=== PATIENT | female | born 1985 | race Caucasian/White ===

== ENCOUNTER → 2020-12-03 19:45 | Outpatient (CLI) | payer MEDICAID, SELFPAY | PROVIDERS: Visit Provider Nurse Practitioner Family | DX: Z20.822 Contact with and (suspected) exposure to COVID-19 (principal) | CPT/HCPCS: U0003 ==

== ENCOUNTER → 2021-05-16 10:54 | Outpatient (CLI) | payer MEDICAID, SELFPAY | PROVIDERS: Visit Provider Nurse Practitioner | DX: Z20.822 Contact with and (suspected) exposure to COVID-19 (principal) | CPT/HCPCS: C9803; U0003; U0005 ==

== ENCOUNTER 2021-06-07 16:17 | Emergency (ER) | payer MEDICAID, SELFPAY ==
[2021-06-07 17:00] VITALS: BP 128/81; PULSE 89; RESP 16; TEMP 37.1; O2SAT 99; BMI 24.9
--- NOTE | 2021-06-07 17:17 | HMH.EDUTC ---
[facility] [place] Disposition Clinical Impression: Viral syndrome, Exposure to COVID-19 virus Pharyngitis Qualifiers: Pharyngitis/tonsillitis etiology: unspecified etiology Qualified Code(s): J02.9 - Acute pharyngitis, unspecified Disposition: Home, Self-Care Condition on Discharge: Good Instructions: Preventing the Spread of Coronavirus Discharge Instructions, DI for COVID-19 (Suspected or Confirmed ), DI for Viral Syndrome Additional Instructions: Drink plenty of fluids. Take tylenol or ibuprofen for pain or fever. Take the medications as directed. Follow up with your regular doctor. GO TO THE ER FOR ANY WORSENING SYMPTOMS Quarantine until you know the results of your covid-19 test. Notify your school or workplace of your results and follow their instructions regarding return to work/school. Prescriptions: Brompheniramine/Pseudoephed/Dm [Bromfed Dm Cough Syrup] 5 ml PO Q6HP PRN #240 ml PRN Reason: Cough Transmission Status: Pending to [facility] Ondansetron [Zofran 4mg ODT] 4 mg PO Q8HP PRN #12 tab PRN Reason: Nausea Transmission Status: Pending to [facility] Azithromycin [Z-Ramone 250mg Tab*] 250 mg PO UD DOSE PK #6 tab Transmission Status: Pending to [facility] Referrals: Provider,Referral, MD [Primary Care Provider] - Forms: Work/School Release Time of Disposition: 17:51 Medical Decision Making - Medical Records Medical records reviewed: No: I reviewed the patient's medical records. - Kendrick Inquiry Pt receiving controlled substance: No Vital Signs: 06/07/21 17:00 Temperature 98.8 F Temperature Source Oral Pulse Rate [Left] 89 Respiratory Rate 16 Blood Pressure [Right Arm] 128/81 Blood Pressure Mean [Right Arm] 96 02 Sat by Pulse Oximetry 99 - Lab Data Lab results reviewed: Yes: I reviewed the patient's lab results. Orders (Tests/Meds): ORDERS Category Date Time Status Covid-19 Nasal PCR ([facility]) Routine Lab 06/07/21 16:56 Received Rapid Strep Scrn Group A [Strep Scrn Group A (Rapid)] Lab 06/07/21 16:56 Received Stat [facility] [place] HPI - General Stated complaint: covid test/treated for symptoms Time Seen by Provider: 06/07/21 17:17 Mode of Arrival: Ambulatory Source of Information: Patient Limitations: No Limitations Description of Symptoms (Recalled from Triage Doc. by RN): pt c/o a sore throat, fever, myalgia, n/v and MCCAIN since yesterday. HEENT Symptoms (Recalled from RN notes): Yes (sore throat) Resp Symptoms (Recalled from RN notes): No Skin Symptoms (Recalled from RN notes): No MS Symptoms (Recalled from RN notes): No Functional Status (Recalled from RN notes): wnl - History of Present Illness Provider Complaint: She c/o sore throat, body aches, chills, a nonproductive cough and she has felt bad since yesterday. - Related Data Previous Rx's Medication Instructions Recorded amoxicillin 500 mg capsule 500 mg PO Q12H 10 Days #20 cap 12/03/20 ondansetron 4 mg disintegrating 4 mg PO Q6H PRN 7 Days #30 tab 12/03/20 tablet Azithromycin [Z-Ramone 250mg Tab*] 250 mg PO UD DOSE PK #6 tab 06/07/21 Brompheniramine/Pseudoephed/Dm 5 ml PO Q6HP PRN #240 ml 06/07/21 [Bromfed Dm Cough Syrup] Ondansetron [Zofran 4mg ODT] 4 mg PO Q8HP PRN #12 tab 06/07/21 Allergies Allergy/AdvReac Type Severity Reaction Status Date / Time codeine Allergy tachycardia Verified 12/03/20 16:31 - Worker's Comp Is this a Worker's Comp case?: No [facility] History - Hepatitis A Screen Drug use history?: No High risk sexual behaviors?: No History of sexually transmitted infection?: No Currently employed?: No Childcare worker?: No Do you have indoor plumbing?: Yes Do you have electricity?: Yes Attestation statement:: This patient has been screened for Hepatitis A risk factors. I have reviewed the patient's past medical history: Yes Medical History: Reports:: Kidney Stones Laterality Cases: Bilateral: Myringotomy (Ear Tubes) Other Surgeries:
[2021-06-07 17:53] LABS: Strep Scrn Group A (Rapid) Negative (Negative)
[2021-06-07 17:56] VITALS: BP 128/81; PULSE 89; RESP 16; TEMP 37.1
== END 2021-06-07 17:58 | disposition home or self-care (01) ==
PROVIDERS: Emergency Provider Nurse Practitioner Family
DX: U07.1 COVID-19 (principal); J02.9 Acute pharyngitis, unspecified; M79.7 Fibromyalgia
CPT/HCPCS: 87430; 99202; C9803; G0463; U0003; U0005

== ENCOUNTER 2021-12-21 10:34 | Emergency (ER) | payer MEDICAID, SELFPAY ==
[2021-12-21 10:50] VITALS: BP 123/90; PULSE 76; RESP 22; TEMP 36.9; O2SAT 100; BMI 24.7
--- NOTE | 2021-12-21 11:09 | HMH.EDUTC ---
[facility] [place] Disposition Clinical Impression: Encounter for laboratory testing for COVID-19 virus Disposition: Home, Self-Care Condition on Discharge: Good Instructions: DI for COVID-19 (Suspected or Confirmed ), Preventing the Spread of Coronavirus Discharge Instructions Additional Instructions: *Monitor Temp, Over the counter Motrin or Tylenol as directed/as needed Tylenol every 4 hours and Motrin every 6 hours (as long as your family doctor has told you that you can take it) for fever or pain. and straight to ER if unable to lower temp less than 101.0 after medication given *Warm salt water gargles may help to soothe the throat *Throat Lozenges *Warm fluids like tea with honey may help to soothe the throat *Sleep elevated *Humidifier/Vaporizer Follow up IMMEDIATELY for new or worsening symptoms or no Noticeable improvement over the next 48-72 hours. 911 for difficulty breathing or swallowing You were tested for today for COVID19 your test result should be back in the next 24-48 hours, you check your results on the [facility] [employer] Health Portal Make sure to take your Vitamins Vit. C Vit D and Zinc if you can take them Referrals: Provider,Referral, [Primary Care Provider] - As needed Forms: Work/School Release Medical Decision Making - Kendrick Inquiry Pt receiving controlled substance: No Kendrick was queried for this patient: No Vital Signs: 12/21/21 10:50 Temperature 98.4 F Temperature Source Oral Pulse Rate [Right Brachial] 76 Respiratory Rate 22 Blood Pressure [Right Arm] 123/90 Blood Pressure Mean [Right Arm] 101 Blood Pressure Source [Right Arm] Automatic Cuff Blood Pressure Position [Right Arm] Sitting 02 Sat by Pulse Oximetry 100 Oxygen Delivery Method Room Air [facility] [place] HPI - General Stated complaint: runny nose, fever, body aches Time Seen by Provider: 12/21/21 11:00 Mode of Arrival: Ambulatory Source of Information: Patient Limitations: No Limitations Description of Symptoms (Recalled from Triage Doc. by RN): PATIENT C/O RUNNY NOSE, BODY ACHES, CHILLS AND FEVER SINCE TUESDAY. REPORTS A POSITIVE AT HOME COVID TEST, BUT STATES SHE NEEDS A PCR FOR WORK HEENT Symptoms (Recalled from RN notes): No Resp Symptoms (Recalled from RN notes): No Skin Symptoms (Recalled from RN notes): No MS Symptoms (Recalled from RN notes): Yes Functional Status (Recalled from RN notes): WNL - History of Present Illness Provider Complaint: Patient states that she started feeling bad on Tuesday with nasal congestion, chills, fever, and overall not feeling well States that she took an at home COVID test and it was positive but her work is requiring a PCR test - Related Data Allergies Allergy/AdvReac Type Severity Reaction Status Date / Time codeine Allergy tachycardia Verified 12/03/20 16:31 - Worker's Comp Is this a Worker's Comp case?: No [facility] History - Hepatitis A Screen Attestation statement:: This patient has been screened for Hepatitis A risk factors. I have reviewed the patient's past medical history: Yes Medical History: Reports:: Cancer, Kidney Stones Laterality Cases: Bilateral: Myringotomy (Ear Tubes) Other Surgeries: Yes: Tubal Ligation, Other (LEEP) Amputation: No - Social History Smoking Status: Current every day smoker Tobacco Type: cigarettes # Packs/Day (cigarettes): 1 #Yrs smoked (if former smoker): 6 Alcohol Intake: never Alcohol Intake Frequency:: holidays/special occasions only Substance Use Type: denies use Occupational Status: other Housing: house Family Hx:: Cancer, Heart Attack, Diabetes, Stroke, Hypertension ROS Obtained: Yes All systems reviewed & no additional complaints, Yes Systems reviewed as appropriate & no additional complaints - Constitutional Constitutional: Reports system reviewed and no additional complaints, except as docu, Reports body ache, Reports chills, Reports fever(s), Reports headache(s) - ENT Ears, Nose, Mouth, and Throat: Reports system reviewed and no additi
[2021-12-21 11:15] VITALS: BP 123/90; PULSE 76; RESP 22; TEMP 36.9; O2SAT 100
== END 2021-12-21 11:18 | disposition home or self-care (01) ==
PROVIDERS: Emergency Provider Nurse Practitioner
DX: U07.1 COVID-19 (principal); R09.89 Other specified symptoms and signs involving the circulatory and respiratory systems; R50.9 Fever, unspecified
CPT/HCPCS: 99212; C9803; G0463; U0003; U0005

== ENCOUNTER 2021-12-26 11:07 | Emergency (ER) | payer MEDICAID, SELFPAY ==
[2021-12-26 11:30] VITALS: BP 128/88; PULSE 71; RESP 18; TEMP 36.9; O2SAT 98; BMI 23.9
--- NOTE | 2021-12-26 11:44 | HMH.EDUTC ---
[facility] [place] Disposition Clinical Impression: COVID-19 Disposition: Home, Self-Care Condition on Discharge: Good Instructions: DI for COVID-19 (Suspected or Confirmed ) Additional Instructions: covid swab was sent to lab, call tomorrow for results. self isolate until test results are known to be negative No sign of a bacterial infection. Likely viral. Viruses can take 7-14 days to run their course. Nasal saline and bulb syringe or nose Cassandra to remove nasal drainage to help with nasal congestion. Hard to eat, drink, sleep with nasal congestion so important to keep this cleaned out. Monitor temp. Tylenol or Motrin as needed for pain or fever Encourage fluids, water, Gatorade, Powerade, Pedialyte if /toddler/child Warm salt water gargles Warm fluids Sore throat lozenges Sleep elevated Humidifier/vaporizer Follow-up immediately for new or worsening symptoms or no noticeable improvement over the next 48-72 hours Referrals: Provider,Referral, MD [Primary Care Provider] - Time of Disposition: 11:49 Medical Decision Making - Kendrick Inquiry Pt receiving controlled substance: No Vital Signs: 12/26/21 11:30 Temperature 98.5 F Temperature Source Oral Pulse Rate [Right Brachial] 71 Respiratory Rate 18 Blood Pressure [Right Arm] 128/88 Blood Pressure Mean [Right Arm] 101 Blood Pressure Source [Right Arm] Automatic Cuff Blood Pressure Position [Right Arm] Sitting 02 Sat by Pulse Oximetry 98 Oxygen Delivery Method Room Air Orders (Tests/Meds): ORDERS Category Date Time Status Covid-19 Nasal PCR ([facility]) Routine Lab 12/26/21 11:20 Received [facility] [place] HPI - General Chief complaint: Urgent [facility] Stated complaint: Cough, runny nose, covid test Time Seen by Provider: 12/26/21 11:45 Mode of Arrival: Ambulatory Source of Information: Patient Limitations: No Limitations Description of Symptoms (Recalled from Triage Doc. by RN): PATIENT REPORTS TESTING POSITIVE FOR COVID ON 12/21 AND HER WORK IS NEEDING A NEGATIVE COVID TEST TO RETURN HEENT Symptoms (Recalled from RN notes): Yes Resp Symptoms (Recalled from RN notes): No Skin Symptoms (Recalled from RN notes): No MS Symptoms (Recalled from RN notes): No Functional Status (Recalled from RN notes): WNL - History of Present Illness Provider Complaint: 36 yr old female presents for covid test. pt states she tested + on 12/21 and work wants her to retest prior to returning to work - Related Data Allergies Allergy/AdvReac Type Severity Reaction Status Date / Time codeine Allergy tachycardia Verified 12/03/20 16:31 - Worker's Comp Is this a Worker's Comp case?: No [facility] History - Hepatitis A Screen Attestation statement:: This patient has been screened for Hepatitis A risk factors. I have reviewed the patient's past medical history: Yes Medical History: Reports:: Cancer, Kidney Stones Laterality Cases: Bilateral: Myringotomy (Ear Tubes) Other Surgeries: Yes: Tubal Ligation, Other (LEEP) Amputation: No - Social History Smoking Status: Current every day smoker Tobacco Type: cigarettes # Packs/Day (cigarettes): 1 #Yrs smoked (if former smoker): 6 Alcohol Intake: never Alcohol Intake Frequency:: holidays/special occasions only Substance Use Type: denies use Occupational Status: other Housing: house Family Hx:: Cancer, Heart Attack, Diabetes, Stroke, Hypertension ROS Obtained: Yes Systems reviewed as appropriate & no additional complaints - Constitutional Constitutional: Reports system reviewed and no additional complaints, except as docu, Denies fever(s) - Eyes Eyes: Reports system reviewed and no additional complaints, except as docu, Denies blurry vision - ENT Ears, Nose, Mouth, and Throat: Reports system reviewed and no additional complaints, except as docu, Denies sore throat - Cardiovascular Cardiovascular: Reports system reviewed and no additional complaints, except as docu, Denies chest pain - Respiratory Respiratory: Reports sys
[2021-12-26 11:48] VITALS: BP 128/88; PULSE 71; RESP 18; TEMP 36.9; O2SAT 98
== END 2021-12-26 12:01 | disposition home or self-care (01) ==
PROVIDERS: Emergency Provider Nurse Practitioner Family
DX: U07.1 COVID-19 (principal); R05.9 Cough, unspecified
CPT/HCPCS: 99212; C9803; G0463; U0003; U0005

== ENCOUNTER 2022-05-24 11:12 | Emergency (ER) | payer MEDICAID, SELFPAY ==
[2022-05-24 11:35] VITALS: BP 159/93; PULSE 76; RESP 20; TEMP 36.8; O2SAT 97; BMI 24.7
--- NOTE | 2022-05-24 11:46 | EXP.UTC ---
Discharge Plan Disposition Patient Disposition: Home, Self-Care Condition: Good Referrals Follow up/Referrals: Provider,Referral, MD [Primary Care Provider] - See instructions Activity Restrictions/Add. Instructions Additional Instructions/Restrictions: *Monitor Temp, Over the counter Motrin or Tylenol as directed/as needed Tylenol every 4 hours and Motrin every 6 hours (as long as your family doctor has told you that you can take it) for fever or pain. and straight to ER if unable to lower temp less than 101.0 after medication given *Warm salt water gargles may help to soothe the throat *Throat Lozenges? *Warm fluids like tea with honey may help to soothe the throat? *Sleep elevated *Humidifier/Vaporizer Follow up IMMEDIATELY for new or worsening symptoms or no Noticeable improvement over the next 48-72 hours. 911 for difficulty breathing or swallowing You were tested for today for COVID19 your test result should be back in the next 24-48 hours, you may check your results on the [facility] [employer] Portal Clinical Impressions Clinical Impression: Viral syndrome Stand Alone Forms Stand Alone Forms: Work/School Release Instructions Patient Instructions: DI for Viral Syndrome, DI for COVID-19 (Suspected or Confirmed ) Discharge ED Provider: Vicky Kelley [facility] [place] HPI General Stated complaint: Covid exposure, bodyaches, headache, nausea, cough Time Seen by Provider: 05/24/22 11:46 History of Present Illness Provider Complaint: Patient states that she was around someone last week that was positive for COVID States that since Tuesday she has been having chills, bodyaches, nasal congestion, and nausea States that today she wasnt feeling any better so she wanted to come in and get tested Related Data Allergies Allergy/AdvReac Type Severity Reaction Status Date / Time codeine Allergy tachycardia Verified 12/03/20 16:31 [facility] Disclaimer: The information contained in this section may have been updated after the patient was seen, as this information can be updated by other users. Medical History (Updated 05/24/22 @ 12:05 by Vicky Kelley APRN) History of anemia Kidney stone Urinary tract infection Surgical History (Updated 05/24/22 @ 11:52 by Brooklyn Peralta RN) History of tubal ligation History of tympanostomy tube placement Social History (Updated 05/24/22 @ 11:53 by Brooklyn Peralta RN) Smoking Status: Current every day smoker tobacco type: cigarettes packs per day: 1 second hand exposure: Yes alcohol intake: never substance use type: denies use current occupational status: other Travel in the last 8 weeks: None housing: house ROS Obtained: Yes All systems reviewed & no additional complaints except as documented and Yes Systems reviewed as appropriate & no additional complaints except as documented Constitutional Constitutional: Reports system reviewed and no additional complaints, except as documented, Reports as per HPI, Reports body ache, Reports fever(s) and Reports headache(s) ENT Ears, Nose, Mouth, and Throat: Reports system reviewed and no additional complaints, except as documented, Reports as per HPI, Reports headache(s) and Reports nasal congestion Cardiovascular Cardiovascular: Reports system reviewed and no additional complaints, except as documented and Reports as per HPI Respiratory Respiratory: Reports system reviewed and no additional complaints, except as documented, Reports as per HPI and Reports cough Gastrointestinal Gastrointestingal: Reports system reviewed and no additional complaints, except as documented, as per HPI, nausea and vomiting Genitourinary Female Genitourinary: Reports system reviewed and no additional complaints, except as documented and Reports as per HPI Neurologic Neurologic: Reports headache(s) Physical Exam General General appearance: alert and in no apparent distress Eye Eye exam: Present normal appearance ENT
[2022-05-24 11:54] LABS: UTC Influenza A Antigen Negative (Negative); UTC Influenza B Antigen Negative (Negative)
[2022-05-24 12:04] VITALS: BP 159/93; PULSE 76; RESP 20; TEMP 36.8; O2SAT 97
== END 2022-05-24 12:09 | disposition home or self-care (01) ==
PROVIDERS: Emergency Provider Nurse Practitioner
DX: R52 Pain, unspecified (principal); R51.9 Headache, unspecified; R11.0 Nausea; R05.9 Cough, unspecified; B34.9 Viral infection, unspecified
CPT/HCPCS: 87804; 99212; C9803; G0463; U0003; U0005

== ENCOUNTER 2024-02-22 11:31 | Emergency (ER) | payer SELFPAY ==
[2024-02-22 12:13] VITALS: BP 147/88; PULSE 82; RESP 20; TEMP 36.8; O2SAT 98; BMI 24.0
[2024-02-22 12:21] LABS: UTC Strep Screen (Rapid) Negative (Negative)
[2024-02-22 12:22] LABS: UTC Influenza A Antigen Negative (Negative); UTC Influenza B Antigen Negative (Negative)
--- NOTE | 2024-02-22 12:42 | EXP.UTC ---
Discharge Plan Disposition Patient Disposition: Home, Self-Care Condition: Good Prescriptions Prescriptions: New amoxicillin 500 mg capsule 500 mg PO BID 10 Days Qty: 20 0RF methylprednisolone [Medrol (Ramone)] 4 mg tablets,dose pack See Rx Instructions .Route .COMPLEX 6 Days Qty: 21 0RF Rx Instructions: taper pack; grlscpuqvrljfdx-tiwtvollr-PZ [Bromfed DM] 2-30-10 mg/5 mL syrup 10 ml PO Q6H PRN (Reason: cold symptoms) Qty: 200 0RF Referrals Follow up/Referrals: Provider,Referral, [Primary Care Provider] - See instructions Activity Restrictions/Add. Instructions Additional Instructions/Restrictions: *Monitor Temp, Over the counter Motrin or Tylenol as directed/as needed Tylenol every 4 hours and Motrin every 6 hours (as long as your family doctor has told you that you can take it) for fever or pain. and straight to ER if unable to lower temp less than 101.0 after medication given *Warm salt water gargles may help to soothe the throat *Throat Lozenges? *Warm fluids like tea with honey may help to soothe the throat? *Sleep elevated *Humidifier/Vaporizer Take medication as prescribed *Bromfed may cause drowsiness. Know how it effects you (your child) before driving, caring for small child, or sending your child to school. Not other antihistamines/allergy medications while taking bromfed Your throat swab was sent for culture. Those results are typically sent to your primary care. Be sure to follow up in 2-3 days with your family doctor/primary care physician if no improvement so they can review those result and treat if necessary. If you don?t have a primary care doctor, I recommend you get one but in the mean time, you will have to return to a walk in clinic Follow up IMMEDIATELY for new or worsening symptoms or no Noticeable improvement over the next 48-72 hours. 911 for difficulty breathing or swallowing Clinical Impressions Clinical Impression: Pharyngitis, Otitis media Stand Alone Forms Stand Alone Forms: Work/School Release Instructions Patient Instructions: Sore Throat, DI for Otitis Media (Middle Ear Infection)-Child Print Language Print Language: Palestinian Discharge ED Provider: Vicky Kelley [facility] [place] HPI General Stated complaint: sore throat, left ear pain, diff. talking, fever Mode of Arrival: Ambulatory Source of Information: Patient Time Seen by Provider: 02/22/24 12:43 Description of Symptoms (Recalled from Triage Doc. by RN): EARACHES, SORE THROAT, BODY ACHES, COUGH, FEVER HEENT Symptoms (Recalled from RN notes): Yes Resp Symptoms (Recalled from RN notes): Yes Skin Symptoms (Recalled from RN notes): No MS Symptoms (Recalled from RN notes): No Functional Status (Recalled from RN notes): WNL History of Present Illness Provider Complaint: Patient states that she has been having pain and pressure in her left ear, sore throat, hoarse and hurts when she swallows and feeling feverish States today she wasnt feeling any better so she came in to get checked Related Data Previous Rx's ?Medication ?Instructions ?Recorded amoxicillin 500 mg capsule 500 mg PO BID 10 days #20 caps 02/22/24 nvopbjypadsszva-yuenlrhibcbbbea-TX 10 ml PO Q6H PRN cold symptoms 02/22/24 2 mg-30 mg-10 mg/5 mL oral syrup #200 mL (Bromfed DM) methylprednisolone 4 mg tablets in See Rx Instructions .Route 02/22/24 a dose pack (Medrol (Ramone)) .COMPLEX 6 days #21 tabs Allergies Allergy/AdvReac Type Severity Reaction Status Date / Time codeine Allergy tachycardia Verified 12/03/20 16:31 Worker's Comp Is this a Worker's Comp case?: No [facility] Disclaimer: The information contained in this section may have been updated after the patient was seen, as this information can be updated by other users. Medical History (Updated 02/22/24 @ 12:54 by Vicky Kelley APRN) History of anemia Urinary tract infection Kidney stone Surgical History (Updated 05/24/22 @ 11:52 by Brooklyn Peralta RN) History of tubal ligation History of tympanostomy tube placement Social History (Updated 05/24/22 @ 11:53 by Brooklyn Peralta RN) Smoking Status: Current every day smoker tobacco type: cigarettes packs per day: 1 second hand exposure: Yes alcohol intake: never substance use type: denies use current occupational status: other Travel in the last 8 weeks: None housing: house ROS Obtained: Yes All systems reviewed & no additional complaints except as documented and Yes Systems reviewed as appropriate & no additional complaints except as documented Constitutional Constitutional: Reports system reviewed and no additional complaints, except as documented, Reports as per HPI, Reports fever(s) and Reports headache(s) ENT Ears, Nose, Mouth, and Throat: Reports system reviewed and no additional complaints, except as documented, Reports as per HPI, Reports otalgia, Reports headache(s), Reports sinus pain and Reports sore throat Cardiovascular Cardiovascular: Reports system reviewed and no additional complaints, except as documented and Reports as per HPI Respiratory Respiratory: Reports system reviewed and no additional complaints, except as documented, Reports as per HPI and Reports cough Neurologic Neurologic: Reports headache(s) Physical Exam General General appearance: alert and in no apparent distress ENT ENT exam: Present mucous membranes moist Expanded ENT Exam TM/Canal exam: Left TM: erythema and bulging Nose exam: Present sinus tenderness Throat exam: Present tonsillar erythema Respiratory Respiratory exam: Present normal lung sounds bilaterally; Absent respiratory distress or wheezes Cardiovascular Cardiovascular exam: Present regular rate, normal rhythm and normal heart sounds Abdominal Exam Abdominal exam: Present soft and normal bowel sounds; Absent distention or tenderness Neurological Exam Neurological exam: Present alert, oriented X3 and normal gait Medical Decision Making Medical Records Screening: Per USPSTF and CDC recommendations, given the prevalence of disease in our region, it is our hospital?s policy to screen for HIV and viral Hepatitis for all patients aged 18 and over and those with ongoing risk factors. Kendrick Inquiry Pt receiving controlled substance: No Kendrick was queried for this patient: No Vital Signs: 02/22/24 12:13 Temperature 98.3 F Temperature Source Oral Pulse Rate [Left Brachial] 82 Respiratory Rate 20 Blood Pressure [Left Arm] 147/88 H Blood Pressure Mean [Left Arm] 107 02 Sat by Pulse Oximetry 98 Lab Data Lab results reviewed: Yes I reviewed the patient's lab results. Lab Results 02/22/24 12:14: Influenza Type A Ag Negative, Influenza Type B Ag Negative, Strep Scn Rapid Clinic Negative Orders (Tests/Meds): ORDERS Category Date Time Status Strep Screen Confirmation Stat Micro 02/22/24 12:14 Received
[2024-02-22 13:08] VITALS: BP 147/88; PULSE 82; RESP 20; TEMP 36.8
== END 2024-02-22 13:09 | disposition home or self-care (01) ==
PROVIDERS: Emergency Provider Nurse Practitioner
DX: H66.92 Otitis media, unspecified, left ear (principal); H92.02 Otalgia, left ear; J02.9 Acute pharyngitis, unspecified; M79.10 Myalgia, unspecified site; R05.9 Cough, unspecified; R50.9 Fever, unspecified
CPT/HCPCS: 87804; 87880; 99212; G0381

== ENCOUNTER 2024-03-01 08:56 | Emergency (ER) | payer SELFPAY ==
[2024-03-01 09:05] VITALS: BP 136/94; PULSE 77; RESP 20; TEMP 36.7; O2SAT 97; BMI 22.6
[2024-03-01 09:10] VITALS: BP 130/86; BP 135/89; BP 145/91; PULSE 104; PULSE 77; PULSE 84
--- NOTE | 2024-03-01 09:17 | ECG_ITS ---
APPROVED REPORT Exam: Resting ECG HR:78 bpm ECG Measurements Heart Rate 78 AXES OK 160 P 48 QRSd 76 QRS -3 QT 368 T 40 QTc 402 Conclusion SINUS RHYTHM POSSIBLE ANTERIOR MYOCARDIAL INFARCTION , PROBABLY OLD [30 ms Q WAVE IN V3/V4, OR R < 0.2 mV IN V4] BORDERLINE ECG Electronically signed by : MARISOL WILKES, 03/03/2024 10:00:52
[2024-03-01 09:34] LABS: Basophils # 0.1 K/mm3 (0-0.2); Basophils % 0.9 % (0.1-2.0); Eosinophils # 0.2 K/mm3 (0.0-0.4); Eosinophils % 1.7 % (0.1-12.0); Hematocrit 44.6 % (37.0-47.0); Hemoglobin 15.3 g/dL (12.2-16.2); Lymphocytes # 2.1 K/mm3 (0.7-4.5); Lymphocytes % 18.6 % (10-50); Mean Corpuscular HGB Conc 34.3 g/dL (31.8-35.4); Mean Corpuscular Hemoglobin 27.4 pg (27.0-31.2); Mean Corpuscular Volume 79.9 fl (81-99); Mean Platelet Volume 6.7 fl (7.4-10.4); Monocytes # 0.7 K/mm3 (0.1-1.0); Neutrophils # 8.1 K/mm3 (1.8-7.8); Neutrophils % 72.8 % (37.0-80.0); Platelet Count 319 K/mm3 (142-424); Red Blood Count 5.58 M/mm3 (4.20-5.40); Red Cell Distribution Width 13.9 % (11.5-17.5); White Blood Count 11.1 K/mm3 (4.8-10.8)
--- NOTE | 2024-03-01 09:35 | ED_ITS ---
Discharge Plan Disposition Patient Disposition: Home, Self-Care Condition: Good Prescriptions Prescriptions: New ondansetron 4 mg Tablet,Disintegrating 4 mg PO Q8H PRN (Reason: Nausea) Qty: 12 0RF Referrals Follow up/Referrals: Provider,Referral, MD [Primary Care Provider] - See instructions Activity Restrictions/Add. Instructions Additional Instructions/Restrictions: Drink plenty of fluids. Follow up with your regular doctor. GO TO THE ER FOR ANY WORSENING SYMPTOMS Clinical Impressions Clinical Impression: Episode of syncope Stand Alone Forms Stand Alone Forms: Work/School Release Instructions Patient Instructions: DI for Syncope in Adults (Fainting), Fainting Print Language Print Language: Yoruba Discharge ED Provider: Michael Clarke [facility] General Stated complaint: dizzness, vomiting and chills Mode of Arrival: Ambulatory Source of Information: Patient Limitations: No Limitations Time Seen by Provider: 03/01/24 09:35 Description of Symptoms (Recalled from Triage Doc. by RN): PATIENT STATES SHE PASSED OUT AT WORK THIS MORNING AND IS HAVING VOMITING AND SWEATS HEENT Symptoms (Recalled from RN notes): Yes Resp Symptoms (Recalled from RN notes): No Skin Symptoms (Recalled from RN notes): No MS Symptoms (Recalled from RN notes): No Functional Status (Recalled from RN notes): WNL History of Present Illness Provider Complaint: She states that she got nauseated and vomited at her job this morning. When she vomited she got light headed and nearly passed out. She refuses to go to the ER. Related Data Previous Rx's ?Medication ?Instructions ?Recorded ondansetron 4 mg disintegrating 4 mg PO Q8H PRN Nausea #12 tabs 03/01/24 tablet Allergies Allergy/AdvReac Type Severity Reaction Status Date / Time codeine Allergy tachycardia Verified 12/03/20 16:31 Worker's Comp Is this a Worker's Comp case?: No [facility] Disclaimer: The information contained in this section may have been updated after the patient was seen, as this information can be updated by other users. Medical History (Updated 03/01/24 @ 10:27 by Michael Clarke APRN) History of anemia Urinary tract infection Kidney stone Surgical History (Updated 05/24/22 @ 11:52 by Brooklyn Peralta RN) History of tubal ligation History of tympanostomy tube placement Social History (Updated 05/24/22 @ 11:53 by Brooklyn Peralta RN) Smoking Status: Current every day smoker tobacco type: cigarettes packs per day: 1 second hand exposure: Yes alcohol intake: never substance use type: denies use current occupational status: other Travel in the last 8 weeks: None housing: house ROS Obtained: Yes All systems reviewed & no additional complaints except as documented Constitutional Constitutional: Denies chills and Denies fever(s) Eyes Eyes: Denies eye discharge ENT Ears, Nose, Mouth, and Throat: Denies dizziness, Denies otalgia and Denies sore throat Cardiovascular Cardiovascular: Denies chest pain Respiratory Respiratory: Denies shortness of breath, Denies chest congestion, Denies cough, Denies stridor and Denies wheezing Gastrointestinal Gastrointestingal: Denies nausea or vomiting Musculoskeletal Musculoskeletal: Reports system reviewed and no additional complaints, except as documented and Denies arthralgias Integumentary/Breasts Skin/Breast: Denies rash Neurologic Neurologic: Denies dizziness and Denies paresthesias Allergic/Immunologic Allergic/Immunologic: Denies wheezing Physical Exam General General appearance: alert and in no apparent distress Head Head exam: atraumatic, normocephalic and normal inspection Eye Eye exam: Present normal appearance, PERRL and EOMI ENT ENT exam: Present normal exam, normal oropharynx, mucous membranes moist, TM's normal bilaterally and normal external ear exam Neck Neck exam: Present normal inspection, full ROM and trachea midline; Absent meningismus or lymphadenopathy Chest Chest inspection: Present normal inspection and symmetric chest wall rise; Absent tenderness Respiratory Respiratory exam: Present normal lung sounds bilaterally; Absent respiratory distress Cardiovascular Cardiovascular exam: Present regular rate and normal rhythm; Absent JVD Abdominal Exam Abdominal exam: Present soft and normal bowel sounds; Absent distention, tenderness or guarding Extremities Exam Extremities exam: Present normal inspection, full ROM and normal capillary refill; Absent calf tenderness Back Exam Back exam: Present normal inspection; Absent tenderness Neurological Exam Neurological exam: Present alert and oriented X3 Psychiatric Psychiatric exam: Present normal affect and normal mood Skin Skin exam: Present warm, dry, intact and normal color Lymphatic Lymphatic Findings: no adenopathy Medical Decision Making Medical Records Medical records reviewed: No I reviewed the patient's medical records. Screening: Per USPSTF and CDC recommendations, given the prevalence of disease in our region, it is our hospital?s policy to screen for HIV and viral Hepatitis for all patients aged 18 and over and those with ongoing risk factors. Kendrick Inquiry Pt receiving controlled substance: No Vital Signs: 03/01/24 09:05 Temperature 98.0 F Temperature Source Oral Pulse Rate [Left Brachial] 77 Respiratory Rate 20 Blood Pressure [Left Arm] 136/94 H Blood Pressure Mean [Left Arm] 108 Blood Pressure Source [Left Arm] Automatic Cuff Blood Pressure Position [Left Arm] Sitting 02 Sat by Pulse Oximetry 97 Oxygen Delivery Method Room Air Lab Data Lab results reviewed: Yes I reviewed the patient's lab results. 03/01/24 09:25 03/01/24 09:25 Orders (Tests/Meds): ORDERS Category Date Time Status Basic Metabolic Panel Stat Lab 03/01/24 09:25 Received CBC w/Auto Diff [Complete Blood Count Auto Diff] Stat Lab 03/01/24 09:25 Received ECG Request Stat Y 03/01/24 09:17 Ordered
[2024-03-01 09:39] LABS: Chloride 105 mmol/L (98-107); Potassium 3.7 mmoL/L (3.5-5.1); Sodium 138 mmol/L (136-145)
[2024-03-01 09:42] LABS: Anion Gap 11.7 mEq/L (5-15); Blood Urea Nitrogen 8 mg/dl (7-17); Carbon Dioxide 25 mmol/L (22.0-30.0); Creatinine Clearance Estimated 108 mL/min (50-200); Estimated Glomerular Filt Rate 111 ml/min (>60); GFR (African American) 135 ML/MIN (>60); Glucose 152 mg/dl (74-100)
[2024-03-01 10:28] VITALS: BP 136/94; PULSE 77; RESP 20; TEMP 36.7; O2SAT 97
== END 2024-03-01 10:31 | disposition home or self-care (01) ==
PROVIDERS: Emergency Provider Nurse Practitioner Family
DX: R55 Syncope and collapse (principal)
CPT/HCPCS: 80048; 85025; 93005; 99213; G0381

== ENCOUNTER 2024-03-14 11:37 | Outpatient (CLI) | payer SELFPAY | END 2024-03-14 23:59 | disposition home or self-care (01) | LOC: RT 11:38 | PROVIDERS: Visit Provider Nurse Practitioner | DX: R55 Syncope and collapse (principal); R07.9 Chest pain, unspecified | CPT/HCPCS: 93225; 93227 ==

== ENCOUNTER 2024-03-27 16:18 | Outpatient (CLI) | payer SELFPAY ==
[2024-03-27 17:06] LABS: D-Dimer 0.64 ug/mL (0.0-0.5)
[2024-03-27 17:31] LABS: Alanine Aminotransferase 15 U/L (12-78); Albumin Level 4.4 g/dl (3.5-5.0); Alkaline Phosphatase 44 U/L (38-126); Aspartate Amino Transferase 21 U/L (14-36); Bilirubin,Indirect 1.2 mg/dL (0.0-0.9); Bilirubin,Total 1.2 mg/dl (0.2-1.3); Bilirubin,Unconjugated 1.2 mg/dL (0.0-1.1); Chol/HDL Ratio 2.7 (1-3.5); Cholesterol 152 mg/dl (140-200); HDL Cholesterol 56 mg/dl (40-60); Total Protein,Serum 6.6 g/dl (6.3-8.2); Triglycerides 225 mg/dl (30-150); VLDL Cholesterol 45 mg/dL (0-40)
[2024-03-27 17:42] LABS: Direct LDL Cholesterol 76.51 mg/dL (100-129)
== END 2024-03-27 23:59 | disposition home or self-care (01) ==
LOC: LAB 16:20
PROVIDERS: Visit Provider Nurse Practitioner
DX: R55 Syncope and collapse (principal); R06.02 Shortness of breath; R07.9 Chest pain, unspecified
CPT/HCPCS: 36415; 80061; 80076; 85378

== ENCOUNTER 2024-04-06 06:25 | Outpatient (CLI) | payer SELFPAY ==
--- NOTE | 2024-04-06 | CA_ITS ---
APPROVED REPORT Exam: Exercise Treadmill Ht: 5 ft 1 in Wt: 127 lbs BSA: 1.56 m2 HR: 60 bpm BP: 123/89 mmHg Stress Test Details HR Resting HR: 60 bpm Max Heart Rate (APMHR): 181.049659 bpm Max HR Achieved: 160 bpm Target HR (85% APMHR): 153.315127 bpm % of APMHR: 88.40 Recovery HR: 82 bpm BP Resting BP: 123.0/89.0 mmHg Max BP: 150.0/96.0 mmHg Recovery BP: 131.0/89.0 mmHg ECG Resting ECG: NSR, low voltage QRS, cannot R/O old high-lateral AL Clinical Highest Stage Achieved: III Stress ECG Conclusion Exercised 7:50 on Jacoby Protocol Max HR: 161 % of PM: 88% Max BP: 158/90 METs: 10.3 Test stopped due to: SOA, fatigue Symptoms: SOA with mild chest tightness Arrhythmias/Ectopy: None ST-T Changes: Normal ST response to exercise. Conclusion: Mild chest discomfort but otherwise normal GXT. Myoview images reported separately. Electronically signed by : Emperatriz Underwood MD 04/09/2024 12:45:01
--- NOTE | 2024-04-06 06:31 | NM_ITS ---
APPROVED REPORT Exam: Nuclear Stress Test Indication: Chest pain, SOB, Syncope, Family history, Hx of MA Patient Location: Outpatient Stress Tech: Pilar [place] Tech:Valerie Linn, ARRT, RT (R)(N) Ht: 5 ft 1 in Wt: 128 lbs Bra Size: 36D HR: 60 bpm BP: 123/89 mmHg BSA: 1.56 m2 TID: 1.30 BMI: 24.1 History: Chest pain, SOB, Syncope, Family history, Hx of MA Procedure: Patient exercised on Jacoby protocol 7:50 minutes and sec, resting heart rate 60 bpm, resting blood pressure 123/89 mmHg, with exercise maximum heart rate achived was 161 bpm which is 88 % of the maximum predicted heart rate and blood pressure was 158/90 mmHg. Test was stopped due to SOB. Patient denied any complaint of chest pain. Patient has average exercise capacity, achieved 10.3 METs of workload on treadmill, the blood pressure response to exercise was normal . Cardiac Stress and Resting SPECT Images: Cardiac Stress and Resting SPECT images were obtained using technetium 99m Myoview 31.9 mCi stress and 10.76 mCi at rest. Resting and stress imaging in supine and prone positions demonstrate no evidence of fixed or reversible perfusion defects. There is increase in transient ischemic dilatation ratio (TID 1.30), suggestive of possible multivessel disease or balanced ischemia. Gated imaging demonstrates normal global and regional LV systolic function. LVEF is calculated at 63%. Conclusion: No evidence of fixed or reversible perfusion defects. There is increase in transient ischemic dilatation ratio (TID 1.30), suggestive of possible multivessel disease or balanced ischemia. Gated imaging demonstrates normal global and regional LV systolic function. LVEF is calculated at 63%. In the setting of young age, normal LV systolic function, and presence of TID, further evaluation noninvasively with CCTA suggested prior to proceeding with invasive coronary angiography. Electronically signed by : Emperatriz Underwood MD 04/09/2024 12:47:34
[2024-04-06] MEDS: SODIUM CHLORIDE 0.9% 10ML SYR (RAD ONLY) 10 ML IV ×2 (08:15)
[2024-04-06] MEDS: ISOTOPE MYOVIEW (PER STUDY) 1 DOSE IV (08:15)
== END 2024-04-06 23:59 | disposition home or self-care (01) ==
LOC: RAD 06:26
PROVIDERS: Visit Provider Nurse Practitioner
DX: R07.9 Chest pain, unspecified (principal); R55 Syncope and collapse
CPT/HCPCS: 78452; 93017; 93018; A9502

== ENCOUNTER 2024-05-03 12:41 | Outpatient (CLI) | payer SELFPAY ==
--- NOTE | 2024-05-03 12:45 | CA_ITS ---
APPROVED REPORT EXAM: Comprehensive 2D, Doppler, and color-flow Echocardiogram Roofer [place]: POLLO Rucker, RVS Ht: 5 ft 1 in Wt: 127lbs BSA: 1.56 BP: 136/94 mmHg Indications: PE protocol, elevated D-dimer, SOA, CP 2D Dimensions Left Atrium 2.67 cm F: 2.7 - 3.8 M-Mode Dimensions RVDd 1.59 cm (0.9-2.6) LA Diam 3.12 cm (1.9-4.0) LVDd 4.76 cm (3.5-5.7) LVDs 3.12 cm (3.5-5.7) IVSd 0.67 cm (0.6-1.1) PWd 0.78 cm (0.6-1.1) EF (Teich) 63.50% EPSs 0.22 cm FS 34.50% EDV (Teich) 105.40 mL TAPSE 2.22 (<1.7) ESV (Teich) 38.50 mL LV Diastology E Decel Time 173 (160-240 msec) E/A Ratio 1.51 MED A' 12.50 cm/s LAT A' 10.50 cm/s Aortic Valve CLINTON Index 1.60 cm2/m2 AoV Peak Patrick. 121.0 (50-130 cm/s) AO Peak GR. 5.90 mmHg AO Mean GR. 3.10 (<5 mmHg) AO VTI 26.7 (18-25 cm) CLINTON (VTI) 2.56 (2.5-4.5 cm2) Mitral Valve MV A Velocity 67.0 (40-130 cm/s) E/A Ratio 1.51 Pulmonary Valve PV Peak Velocity 76.0 (50-150 cm/s) AK End VMAX 165.0 cm/s Tricuspid Valve TR P. Velocity 236.00 cm/s RAP Estimate 10.00 mmHg RVSP 32.20 mmHg Left Ventricle The left ventricle is normal size. The left ventricular systolic function is normal. The left ventricular ejection fraction is within the normal range. There is normal left ventricular wall thickness. There is normal LV segmental wall motion. The left ventricular diastolic function is normal. LVEF is 60%. Right Ventricle Right ventricle is mildly dilated. The right ventricular systolic function is normal. Atria The left atrium size is normal. The right atrium size is normal. There is no Doppler evidence of interatrial shunt. Aortic Valve The aortic valve opens well. There is no aortic valvular stenosis. Trace aortic regurgitation is present. Mitral Valve The mitral valve is normal in structure. No evidence of mitral valve stenosis. Trace mitral regurgitation. Tricuspid Valve Tricuspid valve is grossly normal in structure and function. Mild to moderate tricuspid regurgitation. RVSP Is 20-25 mmHg. Pulmonic Valve Pulmonic valve is grossly normal in structure. Trace pulmonic regurgitation. Great Vessels The aortic root is normal in size. IVC is normal in size and collapses >50% with inspiration. Pericardium There is no pericardial effusion. Other Information Study Quality: Fair Conclusion Normal biventricular systolic function. Mild RV dilation. Mild to moderate TR. RVSP 20-25 mmHg. Electronically signed by : Emperatriz Underwood MD 05/09/2024 19:38:55
--- NOTE | 2024-05-03 13:25 | CT_ITS ---
FINAL REPORT TECHNIQUE: The patient was injected with IV contrast. Axial images were obtained through the chest in a PE protocol. 3-D reconstruction images were also performed. Individualized dose reduction techniques using automated exposure control or adjustment of the MA and/or KV according to patient's size were employed. CLINICAL HISTORY: Shortness of breath, elevated d-dimer COMPARISON: None FINDINGS: Mediastinal vasculature is adequately opacified. No pulmonary artery filling defects are identified to suggest PE. There is no aortic dissection. There is no axillary adenopathy. There is no hilar or mediastinal adenopathy. The heart size is normal. There is no pericardial or pleural effusion. Limited images of the upper abdomen are unremarkable. No suspicious infiltrate or nodule is identified. There is thoracic scoliosis convex to the right measuring about 30 degrees. IMPRESSION: No pulmonary embolus or dissection. Reviewed, Interpreted and Dictated by Maldonado Mohan MD Transcribed by Ирина Couch Authenticated and [facility]
[2024-05-03] MEDS: SODIUM CHLORIDE 0.9% 10ML SYR (RAD ONLY) 10 ML IV (14:00)
[2024-05-03] MEDS: 0.9 % SODIUM CHLORIDE 50 ML VIAL IV (14:00)
[2024-05-03] MEDS: IOPAMIDOL-370 (76%);100ML BOTTLE 80 ML IV (14:01)
== END 2024-05-03 23:59 | disposition home or self-care (01) ==
LOC: RT 12:42
PROVIDERS: Visit Provider Nurse Practitioner Family
DX: I45.2 Bifascicular block (principal); R06.02 Shortness of breath; R79.89 Other specified abnormal findings of blood chemistry
CPT/HCPCS: 71275; 93306; Q9967

== ENCOUNTER 2024-05-18 11:58 | Outpatient (CLI) | payer BC, SELFPAY ==
--- NOTE | 2024-05-18 11:59 | CT_ITS ---
APPROVED REPORT Assembly Supervisor: CLINICAL INDICATION Chest Pain TECHNIQUE Image Acquisition: A 128 slice MDCT scanner ([employer] QponDirecta View) was used for data acquisition. A noncontrast coronary calcium scan was performed. A CT attenuation threshold of 130 Hounsfield units (HU) was used for the detection of calcium in contiguous voxels of 1 sq mm in area to be counted as individual lesions. Bolus tracking in the ascending aorta with a threshold of 180 HU was performed. Immediately afterwards, ECG synchronized cardiac CT was then performed from the cardiac base to apex using retrospective gating with ECG tube current modulation. A total of 85 mL of Isovue 370 mg/mL contrast medium was administered at 5 mL/sec followed by a saline flush using a biphasic injection protocol. A tube voltage of 120 KVp was used. The patient received the following medications prior to the cardiac CT. 0.4 mg of sublingual nitroglycerin The average heart rate at the time of acquisition was 60 bpm and regular. Image Reconstruction Transaxial images were reconstructed at 0.67 mm slide thickness. Data was reviewed interactively on an advanced workstation capable of 2 and 3-dimensional displays in all conventional reconstruction formats, including multiplanar reformations, maximum intensity projections, curved multiplanar reformations, and volume rendered reconstructions. When applicable, selected routine images describing the relevant coronary anatomy and pathology were saved and sent to PACS. Complications None Technical Quality Overall image quality was good. Coronary artery opacification was adequate. Total DLP (Dose-Length Product) is 1021.7 mGy-cm. The reported value represents the total of one or more individual components during the CT acquisition of this date and at this time, and as such, the same value may appear in more than one CT report depending on the interpreting/reporting physicians. COMPARISON None FINDINGS CT Coronary Calcium Scoring LMA (Left Main Artery) = 0 LAD (Left Anterior Descending) = 0 LCX (Left Coronary Circumflex) = 0 RCA (Right Coronary Artery) = 0 Total Calcium Score = 0 using the AJ-130 method. The interpretation of the calcium heart score is based on the following continuum*: 0 = no calcified plaque detected (risk of coronary artery disease is very low ??? less than 5%) 1-10 = calcium detected in extremely minimal levels (risk of coronary diseases is still low ??? less than 10%) 11-100 = mild levels of plaque detected with certainty (mild or minimal narrowing of heart arteries is likely) 101-400 = definite,at least moderate levels of plaque detected (relatively high risk of a heart attack within 3-5 years) >401-999 = extensive levels of plaque detected (high risk of heart attack, high levels of vascular disease are present, high likelihood of at least one significant coronary narrowing) *The calcium heart score quantifies the burden of coronary calcification/plaque in the coronary arteries. The calcium heart score is not able to evaluate the presence or burden of non-calcified (i.e. soft) plaque. There is no identifiable calcification in the aortic valve, mitral annulus or mitral valve, pericardium, or myocardium. Coronary CT Angiography The coronary arterial system is right dominant. Quantitative Stenosis Grading: Left Main (LM): The left main originates normally from the left sinus of Valsalva. The LM bifurcates into the left anterior descending artery and left circumflex artery. The LM is patent with no evidence of atherosclerosis. Left Anterior Descending (LAD) and Diagonal Branches: The LAD gives off 2 diagonal branch(es). The LAD and its branches are patent with no evidence of atherosclerosis. There is no evidence of LAD-myocardial bridge. Left Circumflex (LCX) and Obtuse Marginals (OM): The LCX gives off 1 Obtuse Marginal (OM) branch(es). The LCX and its branches are patent with no evidence of atherosclerosis. Right Coronary Artery (RCA): The RCA originates normally from the right sinus of Valsalva. The RCA gives off a posterior descending artery (PDA) and posterolateral (PL) branches. The RCA and its branches are patent with no evidence of atherosclerosis. Non-Coronary Cardiac Findings: Analysis of the left ventricular (LV) structure and function was performed after 3-D reconstruction of the LV from axial images, with user-corrected automatic contouring for assessment of LV volumes and user-defined reconstruction from oblique planes for measurement of 3-D cardiac structure and function. -The left ventricle systolic function is normal. -There is no left atrial appendage filling defect. Two right pulmonary veins and two left pulmonary veins drain normally into the left atrium. -No pericardial thickening or calcification. -Central and branch pulmonary arteries in the [id number] are unremarkable. -Thoracic aorta within the visualized thoracic aortic-branches in the [id number] is unremarkable. Extracardiac Structures No significant extra-cardiac findings. Note, however, that this study is focused on the cardiac findings. IMPRESSION -Absence of coronary calcification with an Agatston score = 0 using the AJ-130 method. -No evidence of significant flow-limiting atherosclerosis of the coronary arteries. -No evidence of coronary anomalies or myocardial bridges. -CAD-RADS 0. Management recommendations per ACC/AHA guidelines*, as clinically appropriate. *Recommendations: CAD RADS 0: Reassurance. Consider non-atherosclerotic causes of chest pain. CAD RADS 1: Consider non-atherosclerotic causes of chest pain. Consider preventive therapy and risk factor modification. CAD RADS 2: Consider non-atherosclerotic causes of chest pain. Consider preventive therapy and risk factor modification, particularly for patients with nonobstructive plaque in multiple segments. CAD RADS 3: Consider further functional testing. Consider symptom-guided anti-ischemic and preventive pharmacotherapy as well as risk factor modification per published guideline statements. CAD RADS 4A: Consider further functional testing or invasive coronary angiography with revascularization per published guideline statements. Consider symptom-guided anti-ischemic and preventive pharmacotherapy as well as risk factor modification per published guideline statements. CAD RADS 4B: Invasive coronary angiography recommended with revascularization per published guideline statements. Consider symptom-guided anti-ischemic and preventive pharmacotherapy as well as risk factor modification per published guideline statements. CAD RADS 5: Consider invasive angiography and/or viability assessment with revascularization per published guideline statements. Consider symptom-guided anti-ischemic and preventive pharmacotherapy as well as risk factor modification per published guideline statements. CRITICAL RESULT None COMMUNICATION Per this written report The coronary and cardiac findings of this CCTA were reviewed, reported, and signed by Jonnathan Underwood MD (Corrections Identification Technician) Conclusion Electronically signed by : Emperatriz Underwood MD 05/20/2024 23:53:13
[2024-05-18 12:14] VITALS: BMI 24.9
[2024-05-18 12:25] VITALS: BP 111/73; PULSE 60; RESP 18; TEMP 36.8; O2SAT 97
[2024-05-18 12:40] LABS: Chloride 104 mmol/L (98-107); Potassium 4.3 mmoL/L (3.5-5.1); Sodium 136 mmol/L (136-145)
[2024-05-18 12:43] LABS: Anion Gap 10.3 mEq/L (5-15); Blood Urea Nitrogen 10 mg/dl (7-17); Calcium 9.2 mg/dl (8.4-10.2); Carbon Dioxide 26 mmol/L (22.0-30.0); Creatinine Clearance Estimated 102 mL/min (50-200); Estimated Glomerular Filt Rate 93 ml/min (>60); GFR (African American) 113 ML/MIN (>60); Glucose 65 mg/dl (74-100)
[2024-05-18 13:00] LABS: HCG Qualitative, Serum Negative (Negative)
[2024-05-18] MEDS: NITROGLYCERIN 0.4MG SL TABLET 0.4 MG SL (13:16)
[2024-05-18] MEDS: IOPAMIDOL-370 (76%);100ML BOTTLE 85 ML IV (13:41)
[2024-05-18] MEDS: 0.9 % SODIUM CHLORIDE 50 ML VIAL IV (13:41)
[2024-05-18] MEDS: SODIUM CHLORIDE 0.9% 10ML SYR (RAD ONLY) 10 ML IV (13:41)
== END 2024-05-18 13:33 | disposition home or self-care (01) ==
LOC: RAD 11:59
PROVIDERS: PCP Nurse Practitioner; Visit Provider Nurse Practitioner
DX: R07.9 Chest pain, unspecified (principal); R93.1 Abnormal findings on diagnostic imaging of heart and coronary circulation
CPT/HCPCS: 75574; 80048; 84703; Q9967

== ENCOUNTER 2024-11-27 22:36 | Emergency (ER) | payer BC, SELFPAY ==
--- OUTSIDE RECORDS SUMMARY | 2024-11-27 20:30 | XMS_ITS | Encounter Summary ---
Author Organization [facility] Address [address] [place], [place] [id number] Phone [email or web address] Care Team Providers Care Senior Marketing Analyst Name Role Phone Unavailable Primary Care Provider Unavailabl e Reason for Visit * Reason Comments Fit for Duty OCC Encounter Details Date Type Department Care Team ([facility] st Contact Info) Description 11/27/2024 8:30 PM EDT Office Visit [address] [place] [address] Vanita Meneses, RN [address] [place] [address] Encounter for fitness for duty examination (Primary Dx) Social History Tobacco Use Types Packs/Day Years Used Date Smoking Tobacco: Every Day E-Cigarettes Tobacco Cessation:Ready to Q uit: Not Asked; Counseling Given: Not Answered Depression Answer Date Recorded PHQ Total Score 0 06/29/2023 Stress Answer Date Recorded Stress in your Life Not on file 03/15/2024 Dealing with Stress 3 03/15/2024 Comments No Sex and Gender Information Value Date Recorded Sex Assigned at Not on file Legal Sex Female 9:00 AM CDT Gender Identity Not on file Sexual Orientation Not on file documented as of this encounter Last Filed Vital Signs Vital Sign Reading Time Taken Comments Blood Pressure 134/87 11/27/2024 8:30 PM EDT Pulse 67 11/27/2024 8:30 PM EDT Temperature 37.2 C (98.9 F) 11/27/2024 8:30 PM EDT Respiratory Rate 16 11/27/2024 8:30 PM EDT Oxygen Saturation 99% 11/27/2024 8:30 PM EDT Inhaled Oxygen Concentration - - Weight - - Height - - Body Mass Index - - documented in this encounter Patient Instructions * Patient Instructions* Vanita Meneses RN - 11/27/2024 8:30 PM EDT TM states she does not feel fit for duty. F/u with personal physician. Return to [facility] when released to RTW regular duty. documented in this encounter Progress Notes * Vanita Meneses RN - 11/27/2024 8:30 PM EDT Subjective Lorraine Garza is a 39 y.o. female who presents for fit for duty. WD ID: [id number] Employer: [employer] Date of Hire: 01/05/23 Cost Center: [id number] Description: [facility] Shift: 2 Full-time GL and #: Piter Vargasefrain Fit for duty. Brought by TL, TM reports GL is aware. 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 She reports that while working she started having issues holding her spatula due to n/t and pain from her right elbow to fingers. TM has some bruising to the right radial wrist and to the lateral hand on ulnar side. TM rates pain 6/10 currently, 8-9/10 with movement.She reports popping in the wrist and issues with flexion of the wrist. She reports she is having issues with all job processes. 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 TM reports she cannot do her job processes with the pain she is having currently. TM reports she has not seen a doctor for the injury yet. TM does not have an established PCP. Discussed at length with TM that [facility] does not cover time and cannot take her off work or give restrictions. TM verbalized understanding. TM states she is not able to do her job processes. Consulted STEPHANIE Courtney, jayleen to nurse level. TM was given options of local orthopedist walk in clinics ([facility]) and [employer] info. TM reports she will probably go to the ER in [place] to get a referral to see someone. TM aware she will need to come to [facility] when released to regular duty. Triage nurse: Vanita Meneses RN History Reviewed: Tobacco Allergies Meds Med Hx Surg Hx Objective Visit Vitals BP 134/87 Pulse 67 Temp 98.9 ??F Resp 16 SpO2 99% OB Status Having periods Smoking Status Every Day Assessment: ICD-10-CM ICD-9-CM 1. Encounter for fitness for duty examination Z02.89 V70.5 No orders of the defined types were placed in this encounter. Patient Instructions TM states she does not feel fit for duty. F/u with personal physician. Return to [facility] when released to RTW regular duty. documented in this encounter Plan of Treatment Not on file documented as of this encounter Visit Diagnoses Diagnosis Encounter for fitness for duty examination- Primary documented in this encounter
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
[2024-11-27 22:45] VITALS: BP 146/98; PULSE 68; RESP 18; TEMP 37.1; O2SAT 98; BMI 24.5
--- OUTSIDE RECORDS SUMMARY | 2024-11-27 22:50 | XMS_ITS | Clinical Summary ---
Author Organization [facility] Address [address] [place] [id number] Phone [email or web address] Care Team Providers Care Compounding And Finishing Supervisor Name Role Phone Unavailable Primary Care Provider Unavailabl e Allergies Active Allergy Reactions Criticality Noted Date Comments Codeine Hives,Palpitations,Shortness of breath High 06/29/2023 Medications amoxicillin (AMOXIL) 500 MG capsule TAKE 1 CAPSULE BY MOUTH TWICE DAILY FOR 10 DAYS 02/22/2024 Active methylPREDNISol one (MEDROL DOSPAK) 4 MG tablet TAKE BY MOUTH DIRECTED ON INSIDE OF PACKAGE 02/22/2024 Active brompheniramine -pseudoephedrin e-DM 30-2-10 MG/5ML syrup TAKE 10 ML BY MOUTH EVERY 6 HOURS NEEDED FOR COLD SYMPTOMS 02/22/2024 Active metoprolol succinate XL (TOPROL-XL) 25 MG 24 hr tablet Take 25 mg by mouth 1 (one) time each day. Do not crush or chew. Active Active Problems No known active problems Encounters Date Type Department Care Team Description 11/27/2024 8:30 PM EDT Office Visit [facility] [address] [place] [address] Vanita Meneses RN Encounter for fitness for duty examination (Primary Dx) from Last 3 Months Social History Tobacco Use Types Packs/Day Years [...] on file Sexual Orientation Not on file Last Filed Vital Signs Vital Sign Reading Time Taken Comments Blood Pressure 134/87 11/27/2024 8:30 PM EDT Pulse 67 11/27/2024 8:30 PM EDT Temperature 37.2 C (98.9 F) 11/27/2024 8:30 PM EDT Respiratory Rate 16 11/27/2024 8:30 PM EDT Oxygen Saturation 99% 11/27/2024 8:30 PM EDT Inhaled Oxygen Concentration - - Weight 54.4 kg (120 lb) 06/29/2023 1:31 PM EST Height 160 cm (5' 3 ) 06/29/2023 1:31 PM EST Body Mass Index 21.26 06/29/2023 1:31 PM EST Plan of Treatment Health Maintenance Due Date Last Done Comments Dental Cleaning/Exam 1984 HIV Screening 1984 Hepatitis C Screening 1984 Cervical Cancer Screening 2000 Hep B Infection Screening - Triple Screen 2002 Hepatitis B Immunization (1 of 3 - 19+ 3-dose series) 10/21/2003 Pneumococcal: Ped (0 to 5 Yr s) and At-Risk Member (6 to 64 Yrs) (1 of 2 - PCV) 10/21/2003 Tetanus Diphtheria and Pertu ssis Immunization (1 - Tdap) 10/21/2003 Breast Cancer Screening 2014 Annual Preventive Exam 08/27/2023 08/26/2022 Covid-19 Immunization (1 - 2 season) 2024 Influenza Immunization (#1) 2025 Hepatitis A Immunization Aged Out 06/05/2019 No longer eligible based on patient's age to complete this topic HIB Immunization Aged Out No longer e ligible based on patient's age to complete this topic HPV Immunization Aged Out No longer e ligible based on patient's age to complete this topic Polio Immunization Aged Out No longer eligible based on patient's age to complete this topic Varicella Immunization Aged Out No lo nger eligible based on patient's age to complete this topic Insurance OPT OUT COPAY 25 NB
[2024-11-27 22:51] VITALS: PULSE 68
--- NOTE | 2024-11-27 22:54 | XR_ITS ---
PROCEDURE INFORMATION: Exam: XR Right Wrist Exam date and time: 11/27/2024 11:01 PM Age: 39 years old Clinical indication: Pain; Wrist; Right; Additional info: Tenderness S/P injury TECHNIQUE: Imaging protocol: Radiologic exam of the right wrist. Views: 3 or more views. COMPARISON: CR XR WRIST RT MIN 3V 11/27/2024 11:01 PM FINDINGS: Bones/joints: No acute fracture or dislocation. Soft tissues: Normal. IMPRESSION: No acute fracture or dislocation.
--- NOTE | 2024-11-27 22:54 | XR_ITS ---
PROCEDURE INFORMATION: Exam: XR Right Hand Exam date and time: 11/27/2024 11:01 PM Age: 39 years old Clinical indication: Pain; Hand; Right; Additional info: Tenderness for one week TECHNIQUE: Imaging protocol: Radiologic exam of the right hand. Views: 3 or more views. COMPARISON: CR XR FOREARM RT 2V 11/27/2024 11:01 PM FINDINGS: Bones/joints: No acute fracture or dislocation. Soft tissues: Normal. IMPRESSION: No acute fracture or dislocation.
--- NOTE | 2024-11-27 22:54 | XR_ITS ---
PROCEDURE INFORMATION: Exam: XR Right Forearm Exam date and time: 11/27/2024 11:01 PM Age: 39 years old Clinical indication: Pain; Lower or forearm; Right; Additional info: Tenderness S/P injury TECHNIQUE: Imaging protocol: Radiologic exam of the right forearm. Views: 2 views. COMPARISON: CR XR FOREARM RT 2V 11/27/2024 11:01 PM FINDINGS: Bones/joints: No acute fracture or dislocation. Soft tissues: Normal. IMPRESSION: No acute fracture or dislocation.
[2024-11-27 23:54] VITALS: BP 130/101; PULSE 63; RESP 18; TEMP 36.8; O2SAT 100
== END 2024-11-27 23:56 | disposition home or self-care (01) ==
PROVIDERS: Emergency Provider Student in an Organized Health Care Education/Training Program
DX: M25.539 Pain in unspecified wrist (principal); F17.210 Nicotine dependence, cigarettes, uncomplicated
CPT/HCPCS: 73090; 73110; 73130; 99284

== ENCOUNTER 2025-01-02 10:43 | Outpatient (RCR) | payer BC, SELFPAY | END 2025-01-02 23:59 | disposition home or self-care (01) | LOC: OT 10:43 | PROVIDERS: Visit Provider Physician Assistant Surgical | DX: M25.531 Pain in right wrist (principal); M79.641 Pain in right hand | CPT/HCPCS: 97165; 97530 ==

== ENCOUNTER 2025-02-05 08:00 | Outpatient (RCR) | payer BC, SELFPAY | END 2025-02-05 23:59 | disposition home or self-care (01) | LOC: OT 08:00 | PROVIDERS: Visit Provider Physician Assistant Surgical | DX: M25.531 Pain in right wrist (principal) | CPT/HCPCS: 97014; 97032; 97035; 97110; 97140; 97530; G0283 ==

== ENCOUNTER 2025-02-12 08:00 | Outpatient (RCR) | payer BC, SELFPAY | END 2025-02-12 23:59 | disposition home or self-care (01) | LOC: OT 08:00 | PROVIDERS: Visit Provider Physician Assistant Surgical | DX: M25.531 Pain in right wrist (principal) | CPT/HCPCS: 97032; 97035; 97110; 97140; 97530 ==